=== PATIENT | female | born 2000 | race African-American/Black ===

== ENCOUNTER 2022-02-20 16:14 | Emergency (ER) | payer OTHER, SELFPAY ==
--- NOTE | ~2022-02-20 | XR_ITS ---
EXAMINATION: XR CHEST CLINICAL INFORMATION: Cough. COMPARISON: None TECHNIQUE: PA view of the chest was obtained. FINDINGS: Normal appearance of the cardiomediastinal silhouette. No focal airspace opacities, pleural effusions or pneumothorax. No acute osseous abnormalities. The visualized upper abdomen is within normal limits. XR/XR chest 1V IMPRESSION: No acute cardiopulmonary findings.
[2022-02-20 16:25] VITALS: BP 117/71; PULSE 87; RESP 18; TEMP 37.2; O2SAT 99; BMI 23.6
[2022-02-20 16:43] LABS: MANUAL DIFF FLAG NO
[2022-02-20 16:44] LABS: Basophils Percent Auto 0.4 % (0-2); Eosinophils Absolute Auto 0.2 X10*3/uL (0.0-0.4); Eosinophils Percent Auto 4.7 % (0-4); Hematocrit 37.9 % (37.0-47.0); Hemoglobin 12.2 g/dl (12.0-16.0); Imm Gran Abs Auto 0.01 X10*3/uL (0.00-0.03); Imm Gran Pct Auto 0.2 % (0.0-0.4); Lymphocytes Absolute Auto 2.5 X10*3/uL (1.2-4.9); Lymphocytes Percent Auto 54.3 % (20-40); Mean Corpuscular HGB Conc 32.2 g/dl (31.0-35.0); Mean Corpuscular Hemoglobin 25.3 pg (27.0-33.0); Mean Corpuscular Volume 78.5 fL (80.0-98.0); Mean Platelet Volume 9.7 fL (9.4-12.3); Monocytes Absolute Auto 0.6 X10*3/uL (0.1-1.2); Monocytes Percent Auto 13.5 % (2-11); Neutrophils Absolute Auto 1.3 x10*3/uL (2.0-8.3); Neutrophils Percent Auto 26.9 % (45-73); Platelet Count 285 X10*3/uL (160-400); Red Blood Count 4.83 X10*6/uL (4.20-5.50); Red Cell Distribution Width 13.5 % (11.0-16.0); White Blood Count 4.7 X10*3/uL (4.8-10.8)
[2022-02-20 17:02] LABS: Alanine Aminotransferase 11 U/L (0-31); Albumin Level 4.1 g/dL (3.5-5.0); Alkaline Phosphatase 76 U/L (39-117); Anion Gap 13 (12-20); Aspartate Amino Transferase 20 U/L (5-31); Bilirubin Direct < 0.2 mg/dL (0.0-0.5); Bilirubin Total 0.2 mg/dL (0.0-1.0); Blood Urea Nitrogen 8 mg/dL (9-16); Calcium 8.7 mg/dL (8.4-10.2); Carbon Dioxide 23 mmol/L (22-29); Chloride 108 mmol/L (96-108); Creatinine Clr Calc Pharmacy 114.7; Estimated Glomerular Filt Rate > 60; Glucose Random 102 mg/dL (60-115); Potassium 3.7 mmol/L (3.3-5.1); Sodium 140 mmol/L (135-145); Total Protein 7.3 g/dL (6.5-8.0)
[2022-02-20 17:02] LABS: COVID-19 Test Positive (Negative); IDNOW Serial# 16C4AD1C
[2022-02-20 17:09] LABS: Strep A Nucleic Acid Negative (Negative)
[2022-02-20 17:14] LABS: Influenza A Negative (Negative); Influenza B2 Negative (Negative)
--- NOTE | 2022-02-20 18:00 | ED_ITS ---
HPI - URI/Sore Throat General Chief Complaint: Upper Respiratory Symptoms Stated Complaint: Cough Time Seen by Provider: 02/20/22 17:47 Source: patient Mode of arrival: ambulatory History of Present Illness HPI Narrative: 21-year-old female with no significant past medical history presenting to the ED complaining of cough, sore throat, ear pain, rhinorrhea x4 days and fever a couple days ago. Also reports chest discomfort when coughing, and some blood tinged spit s/p coughing fit. Denies chills, SOB, recent travel, sick contacts MD elicited complaint: fever, cough and nasal congestion Review of Systems Review of Systems: Constitutional: + Fever, No Chills ENT/Mouth: + Ear Pain, + Nasal Congestion, No Sinus Pain, No Hoarseness, + sore throat, + Rhinorrhea, No Swallowing Difficulty Cardiovascular: + Chest Pain when coughing, No SOB Respiratory: + Cough, + Sputum, No Wheezing Gastrointestinal: No Nausea, No Vomiting, No Diarrhea, No Constipation, No Abdominal pain Genitourinary: No Dysuria, No Flank Pain Musculoskeletal: No joint pain, No Myalgias, No Joint Swelling Skin: No Skin Lesions, No rash Neuro: No Weakness, No Numbness, No Paresthesias Yes all other systems are reviewed and are negative FOR[facility]LY [facility], [facility] Past Medical History Attestation statement: The following information was validated with the patient. Social History Social History Advance Directives: No Advance Directives Information Provided: No Physical Exam Vital Signs: Vital Signs: Last Vital Signs Temp 98.9 F 02/20/22 16:25 Pulse 87 02/20/22 16:25 Resp 18 02/20/22 16:25 BP 117/71 02/20/22 16:25 Pulse Ox 99 02/20/22 16:25 O2 Del Method 02/20/22 16:25 BMI result Body Mass Index 23.6 Const: General: cooperative, healthy appearing and no acute distress Orientation/consciousness: patient oriented x3 Limitations: no limitations HEENT: Head: Yes normal to inspection and Yes atraumatic Ears: hearing grossly normal bilaterally, external ears normal, TM's normal bilaterally and mastoids normal General nose exam: Normal external nose present Face and sinus: Yes normal facial exam Mouth: Normal oral and palatal mucosa present Throat: Yes posterior oropharynx normal, Yes tonsils normal, Yes uvula midline and No posterior oropharynx abnormal Eyes: General: appearance normal, both eyes and all related structures EOM: EOMs intact bilaterally Neck: Neck: Yes normal visual inspection, Yes no lymphadenopathy and Yes no meningeal signs Resp: Effort & Inspection: normal respiratory effort and no respiratory distress Auscultation: clear to auscultation bilaterally, no crackles, no rales and no rhonchi Cardio: Rate: regular rate Heart sounds: S1 normal heart sound present and S2 normal heart sound present Skin: Rashes: no rashes Wounds: no wounds Neuro: General: patient oriented x3, tone normal and no meningeal signs Gait exam (Neuro): Normal gait present Extrem: General: Yes normal to inspection Course Course Course Narrative: -mild leukopenia to 4.7. Labs otherwise unremarkable. Rapid strep negative. Influenza negative -COVID-19 positive XR chest 1V IMPRESSION: No acute cardiopulmonary findings. ? > results discussed with patient including worrisome signs and symptoms and strict return precautions MDM - URI/Sore Throat MDM Narrative Medical decision making narrative: 21-year-old female with no significant past medical history presenting to the ED complaining of cough, sore throat, ear pain, rhinorrhea x4 days and fever a couple days ago. On exam vital signs stable, NAD, nontoxic appearing, lungs CTA, or pharynx and TMs WNL. Concern for viral illness including COVID-19 / influenza vs bronchitis vs pneumonia. Symptoms atypical for ACS/PE Plan: COVID-19/influenza testing, CXR, labs (ordered in triage) Differential Diagnosis Differential diagnosis: Likely upper respiratory infection, viral infection, bronchitis and influenza Medical Records Attestation: I reviewed the patient's medical records. Lab Data Attestation: I reviewed the patient's lab results. Result diagrams: 02/20/22 16:37 02/20/22 16:37 Labs: Lab Results 02/20/22 02/20/22 02/20/22 Range/Units 16:31 16:32 16:32 WBC (4.8-10.8) X10*3/uL RBC (4.20-5.50) X10*6/uL Hgb (12.0-16.0) g/dl Hct (37.0-47.0) % MCV (80.0-98.0) fL MCH (27.0-33.0) pg MCHC (31.0-35.0) g/dl RDW (11.0-16.0) % Plt Count (160-400) X10*3/uL MPV (9.4-12.3) fL Immature Gran % (Auto) (0.0-0.4) % Neut % (Auto) (45-73) % Lymph % (Auto) (20-40) % [place] % (Auto) (2-11) % Eos % (Auto) (0-4) % Baso % (Auto) (0-2) % Lymph # (Auto) (1.2-4.9) X10*3/uL [place] # (Auto) (0.1-1.2) X10*3/uL Eos # (Auto) (0.0-0.4) X10*3/uL Baso # (Auto) (0.0-0.2) X10*3/uL Abs Immat Gran (auto) (0.00-0.03) X10*3/uL Absolute Neuts (auto) (2.0-8.3) x10*3/uL Absolute Nucleated RBC (0.0-0.012) X10*3/uL Nucleated RBC % (auto) (0.0-0.2) /100WBC Sodium (135-145) mmol/L Potassium (3.3-5.1) mmol/L Chloride (96-108) mmol/L Carbon Dioxide (22-29) mmol/L Anion Gap (12-20) BUN (9-16) mg/dL Creatinine (0.5-1.4) mg/dL Estim Creat Clear Calc Estimated GFR Random Glucose (60-115) mg/dL Calcium (8.4-10.2) mg/dL Total Bilirubin (0.0-1.0) mg/dL Direct Bilirubin (0.0-0.5) mg/dL AST (5-31) U/L ALT (0-31) U/L Alkaline Phosphatase (39-117) U/L Total Protein (6.5-8.0) g/dL Albumin (3.5-5.0) g/dL COVID-19 (CHEO) Positive A (Negative) COVID-19 Clin Com See Note Influenza Type A (STACI) Negative (Negative) Influenza Type B (STACI) Negative (Negative) Influenza A & B Note See Note S. pyogenes GrpA STACI Negative (Negative) 02/20/22 02/20/22 Range/Units 16:37 16:37 WBC 4.7 L (4.8-10.8) X10*3/uL RBC 4.83 (4.20-5.50) X10*6/uL Hgb 12.2 (12.0-16.0) g/dl Hct 37.9 (37.0-47.0) % MCV 78.5 L (80.0-98.0) fL MCH 25.3 L (27.0-33.0) pg MCHC 32.2 (31.0-35.0) g/dl RDW 13.5 (11.0-16.0) % Plt Count 285 (160-400) X10*3/uL MPV 9.7 (9.4-12.3) fL Immature Gran % (Auto) 0.2 (0.0-0.4) % Neut % (Auto) 26.9 L (45-73) % Lymph % (Auto) 54.3 H (20-40) % [place] % (Auto) 13.5 H (2-11) % Eos % (Auto) 4.7 H (0-4) % Baso % (Auto) 0.4 (0-2) % Lymph # (Auto) 2.5 (1.2-4.9) X10*3/uL [place] # (Auto) 0.6 (0.1-1.2) X10*3/uL Eos # (Auto) 0.2 (0.0-0.4) X10*3/uL Baso # (Auto) 0.0 (0.0-0.2) X10*3/uL Abs Immat Gran (auto) 0.01 (0.00-0.03) X10*3/uL Absolute Neuts (auto) 1.3 L (2.0-8.3) x10*3/uL Absolute Nucleated RBC 0.000 (0.0-0.012) X10*3/uL Nucleated RBC % (auto) 0.0 (0.0-0.2) /100WBC Sodium 140 (135-145) mmol/L Potassium 3.7 (3.3-5.1) mmol/L Chloride 108 (96-108) mmol/L Carbon Dioxide 23 (22-29) mmol/L Anion Gap 13 (12-20) BUN 8 L (9-16) mg/dL Creatinine 0.71 (0.5-1.4) mg/dL Estim Creat Clear Calc 114.7 Estimated GFR > 60 Random Glucose 102 (60-115) mg/dL Calcium 8.7 (8.4-10.2) mg/dL Total Bilirubin 0.2 (0.0-1.0) mg/dL Direct Bilirubin < 0.2 (0.0-0.5) mg/dL AST 20 (5-31) U/L ALT 11 (0-31) U/L Alkaline Phosphatase 76 (39-117) U/L Total Protein 7.3 (6.5-8.0) g/dL Albumin 4.1 (3.5-5.0) g/dL COVID-19 (CHEO) (Negative) COVID-19 Clin Com Influenza Type A (STACI) (Negative) Influenza Type B (STACI) (Negative) Influenza A & B Note S. pyogenes GrpA STACI (Negative) Discharge Plan Discharge Clinical Impression: COVID-19 Patient Disposition: Home, Self-Care Instructions: COVID-19 (Coronavirus Disease 2019) (ED) Additional Instructions: At this time you will be okay for discharge. Please self isolate for 5-10 days. Do not expose yourself to others. You may not go to work or school. If you are not having symptoms after 5 days you may retest & if you are negative can resume daily life, if youre positive continue to self isolate Please continue to follow cold instructions and wash your hands frequently. You may take Tylenol / Motrin as directed on the bottle for pain or fever. If you have constant or persistent shortness of breath, fever unresolved with medications, chest pain, or your unable to eat or drink please return to the ED CDC Guidelines for home isolation: - Stay away from others - WEAR A MASK if you are sick AND STAY HOME - Cover your mouth and nose with a tissue when you cough or sneeze. Dispose of tissues in a lined trash can and wash your hands immediately with soap and water for at least 20 seconds. If soap and water are not available, clean hands with alcohol-based hand yard goods salesperson that contains at least 60% alcohol. - Clean your hands often with soap and water for at least 20 seconds - Avoid touching your eyes, nose and mouth with unwashed hands - Do not share dishes, drinking glasses, cups, eating utensils, towels, or b edding with other people in your home. After using these items, wash them thoroughly with soap and water or put in the purifying plant operator. - Clean high-touch surfaces in your isolation area ( sick room and bathroom) every day; let a caregiver clean and disinfect high-touch surfaces in other areas of the home. Clean the area or item with soap and water or another detergent if it is dirty. Then, use a household disinfectant. - Limit contact with pets and animals: If you must care for a pet, wash your h ands before and after interacting with them) Referrals: Physician,Nelson J [Primary Care Provider] -
== END 2022-02-20 19:05 | disposition home or self-care (01) ==
PROVIDERS: Emergency Provider Internal Medicine
DX: U07.1 COVID-19 (principal); R05.9 Cough, unspecified; Z20.822 Contact with and (suspected) exposure to COVID-19; Z79.899 Other long term (current) drug therapy
CPT/HCPCS: 71045; 80053; 82248; 85025; 87502; 87635; 87651; 99282; 99283

== ENCOUNTER 2023-02-01 16:16 | Emergency (ER) | payer SELFPAY ==
--- NOTE | 2023-02-01 16:35 | ED_ITS ---
HPI - URI/Sore Throat General Chief Complaint: General Medical Stated Complaint: ? sore throat ,fever Time Seen by Provider: 02/01/23 16:41 Source: patient, RN notes reviewed and old records reviewed Mode of arrival: ambulatory History of Present Illness HPI Narrative: 22yo F w/no sig PMHx presenting to the ED c/o sore throat, subjective fever, generalized weakness x 2 days. Also reports mild dry cough. Denies ear pain, CP/SOB, inability to swallow MD elicited complaint: fever, cough and sore throat Related Data Previous Rx's Medication Instructions Recorded penicillin V potassium 250 mg/5 mL 500 mg (10 mL) PO BID 10 days #200 02/01/23 oral solution mL Allergies Allergy/AdvReac Type Severity Reaction Status Date / Time No Known Allergies Allergy Verified 02/01/23 16:35 Review of Systems Review of Systems: Constitutional: No Weight loss, +Subj Fever, No Chills ENT/Mouth: No Ear Pain, + Nasal Congestion, No Sinus Pain, No Hoarseness, + sore throat, + Rhinorrhea, No Swallowing Difficulty Cardiovascular: No Chest Pain, No SOB Respiratory: + Cough, No Sputum, No Wheezing Gastrointestinal: No Nausea, No Vomiting, No Diarrhea, No Constipation, No Abdominal pain Genitourinary: No Dysuria, No Urinary Frequency, No Flank Pain Musculoskeletal: No joint pain, No Myalgias, Skin: No Skin Lesions, No rash Neuro: No Weakness, No Numbness, No Paresthesias Yes all other systems are reviewed and are negative Constitutional: Constitutional: Reports as per [facility] Past Medical History Attestation statement: The following information was validated with the patient. Source: old records reviewed Social History Social History Advance Directives: No Advance Directives Information Provided: No Physical Exam Vital Signs: Vital Signs: Last Vital Signs Temp 99.5 F 02/01/23 16:36 Pulse 101 H 02/01/23 16:36 Resp 16 02/01/23 16:36 BP 102/66 02/01/23 16:36 Pulse Ox 96 02/01/23 16:36 O2 Del Method Room Air 02/01/23 16:36 BMI result Body Mass Index 23.4 Const: General: cooperative, healthy appearing and no acute distress Orientation/consciousness: patient oriented x3 Limitations: no limitations HEENT: Head: Yes normal to inspection and Yes atraumatic Ears: hearing grossly normal bilaterally, external ears normal, TM's normal bilaterally and mastoids normal General nose exam: Normal external nose present Face and sinus: Yes normal facial exam Throat: Yes uvula midline, Yes abnormal tonsil (erythema and exudates ), No uvula laterally displaced and No uvular edema Eyes: General: appearance normal, both eyes and all related structures EOM: EOMs intact bilaterally Neck: Neck: Yes normal visual inspection, Yes full ROM, Yes no lymphadenopathy, Yes no meningeal signs and No anterior neck swelling Resp: Effort & Inspection: normal respiratory effort and no respiratory distress Auscultation: clear to auscultation bilaterally, no crackles, no rales, no rhonchi and no wheezes Cardio: Rate: regular rate Heart sounds: S1 normal heart sound present and S2 normal heart sound present GI: Inspection: Yes normal to inspection Skin: Rashes: no rashes Wounds: no wounds Neuro: General: patient oriented x3, tone normal and no meningeal signs Gait exam (Neuro): Normal gait present Extrem: General: Yes normal to inspection Course Course Course Narrative: -rapid strep, COVID/FLU negative > patient clinically with strep pharyngitis will treat with antibiotics Results discussed with patient including worrisome signs and symptoms and strict return precautions, and when to return to the emergency department. They verbalized understanding and feel safe for discharge at this time. Medical Decision Making Medical Decision Making [facility] Narrative: 22yo F w/no sig PMHx presenting to the ED c/o sore throat, subjective fever, generalized weakness x 2 days. On exam vital signs stable, NAD, nontoxic appearing, +bilateral tonsillar exudates with mild erythema noted, uvula midline, talking in complete sentences, handling secretions. Lungs CTA. Concern for pharyngitis vs viral syndrome. 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 low concern for mastoiditis or otitis Plan: Rapid strep testing, COVID/FLU Please refer to course for remaining clinical decision making, interpretation of labs/imaging results, and discussions with consultants and/or family members. Differential Diagnosis Differential Diagnoses: The differential diagnosis associated with the presentation includes As above Lab Data [facility] Lab Attestation statement: I reviewed the patient's lab results. Labs: Lab Results 02/01/23 02/01/23 02/01/23 Range/Units 16:41 16:42 16:42 COVID-19 (CHEO) Negative (Negative) COVID-19 Clin Com See Note Influenza Type A (STACI) Negative (Negative) Influenza Type B (STACI) Negative (Negative) Influenza A & B Note See Note S. pyogenes GrpA STACI Negative (Negative) External Record Review External record reviewed: Inpatient record, Office record, Outpatient record, Prior outpatient labs, Prior outpatient radiology, Primary care record and Outside ED record Tests considered The following testing was considered but not selected: As above Discharge Plan Discharge Clinical Impression: Acute streptococcal pharyngitis Patient Disposition: Home, Self-Care Instructions: Pharyngitis (ED) Additional Instructions: You tested negative for COVID, flu, and strep, however clinically of strep pharyngitis. Penicillin is an antibiotic please take as prescribed Gargle with warm salt water Follow-up with her doctor If symptoms persist or worsen return to the ED Take Tylenol and Motrin at home follow up with your doctor Prescriptions: New penicillin V potassium 250 mg/5 mL recon soln 500 mg PO BID 10 Days Qty: 200 0RF Referrals: Physician,Unknown J [Primary Care Provider] - 5 days Interventions: ED Discharge Assessment Last Done: 02/01/23 18:08 Discharge Date/Time: 02/01/23 18:09
[2023-02-01 16:36] VITALS: BP 102/66; PULSE 101; RESP 16; TEMP 37.5; O2SAT 96; BMI 23.4
[2023-02-01 16:55] LABS: IDNOW Serial# 6674DD1D; Strep A Nucleic Acid Negative (Negative)
[2023-02-01 17:04] LABS: COVID-19 Test Negative (Negative); IDNOW Serial# 16C4AD1C; Influenza A Negative (Negative); Influenza B2 Negative (Negative)
== END 2023-02-01 18:09 | disposition home or self-care (01) ==
PROVIDERS: Physician Assistant; Emergency Provider Emergency Medicine
DX: J02.0 Streptococcal pharyngitis (principal); R50.9 Fever, unspecified; Z20.822 Contact with and (suspected) exposure to COVID-19
CPT/HCPCS: 87502; 87635; 87651; 99282; 99283

== ENCOUNTER 2024-04-04 13:51 | Emergency (ER) | payer OTHER, SELFPAY ==
[2024-04-04 14:04] VITALS: BP 124/82; PULSE 81; RESP 19; TEMP 36.6; O2SAT 98; BMI 20.6
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
[2024-04-04 14:28] LABS: COVID-19 Test Negative (Negative); IDNOW Serial# 08D9AD1C; IDNOW Serial# 152EDE1D; Strep A Nucleic Acid Negative (Negative)
[2024-04-04 16:28] VITALS: BP 124/82; PULSE 81; RESP 19; TEMP 36.6; O2SAT 98
== END 2024-04-04 16:28 | disposition home or self-care (01) ==
PROVIDERS: Physician Assistant; Emergency Provider Emergency Medicine
DX: J02.9 Acute pharyngitis, unspecified (principal); Z11.52 Encounter for screening for COVID-19
CPT/HCPCS: 87635; 87651; 99282; 99283